=== PATIENT | female | born 1965 | race Caucasian/White ===

== ENCOUNTER 2018-12-11 06:29 | Day surgery (SDC) | payer OTHER ==
[~2018-12-11] VITALS: Ht 167.6 cm; Wt 70.9 kg
[2018-12-11 07:24] VITALS: Ht 167.6 cm; Wt 70.9 kg
[2018-12-11 07:44] VITALS: BP 110/58; PULSE 69; RESP 18
[2018-12-11] MEDS ORDERED: NO MEDS (07:47)
[2018-12-11] MEDS ORDERED: MIDAZOLAM 1 MG/ML 2 ML INJ ONE ×2 (08:47)
[2018-12-11] MEDS ORDERED: FENTAnyl 50 MCG/ML VIAL ONE (08:48)
[2018-12-11 09:17] VITALS: BP 96/53; PULSE 66; RESP 18
== END 2018-12-11 11:06 | disposition home or self-care (01) ==
LOC: GIL 06:29
PROVIDERS: ATTEND Internal Medicine Gastroenterology
DX: Z12.11 Encounter for screening for malignant neoplasm of colon (principal); D12.5 Benign neoplasm of sigmoid colon; K64.8 Other hemorrhoids
CPT/HCPCS: 45380; 88305; J2250; J3010